=== PATIENT | male | born 1935 | race Caucasian/White ===

== ENCOUNTER 2020-04-25 06:41 | Inpatient (IN) | payer MEDICARE, OTHER ==
[~2020-04-25] VITALS: Ht 175.3 cm; Wt 112.6 kg
[~2020-04-25 06:41] MED LIST: ATOR40TA52 PO; CELE1CAP PO; FURO1TAB33 PO; PANT40TA2 PO; SUCR1TAB22 PO
[2020-04-25] MEDS ORDERED: SUCCINYLCHOLINE CHLORIDE 20 MG/ML 10ML VIAL IV ONE (06:51)
[2020-04-25] MEDS ORDERED: LIDOCAINE 1% HCL (LOCAL ANESTH.) INJ 20ML MDV ONE (06:51)
[2020-04-25] MEDS ORDERED: TETRACAINE 1% INJ 2 ML VIAL IJ ONE (06:52)
[2020-04-25] MEDS ORDERED: MIDAZOLAM HCL 1MG/1ML-2 ML VIAL ONE (07:02)
[2020-04-25] MEDS ORDERED: SODIUM CHLORIDE LOCK 10 ML ONE (07:02)
[2020-04-25] MEDS ORDERED: PROPOFOL 10 MG/ML 20 ML IV ONE (07:02)
[2020-04-25] MEDS ORDERED: MORPHINE SULF(PF) 0.5MG/ML 10ML VIAL ONE ×2 (07:02→07:14)
[2020-04-25] MEDS ORDERED: EPINEPHrine HCL 1 MG/1 ML AMP ONE (07:02)
[2020-04-25] MEDS ORDERED: ONDANSETRON HCL 4 MG/2 ML VIAL ONE (07:02)
[2020-04-25] MEDS ORDERED: BUPIVACAINE W/ EPINEPH 0.25% INJ 50ML MDV ONE (07:02)
[2020-04-25] MEDS ORDERED: fentaNYL CITRATE 100 MCG/2 ML VL ONE (07:02)
[2020-04-25] MEDS ORDERED: BUPIVACAINE/DEXTROSE MPF 0.75% 2 ML AMP IT ONE (07:03)
[2020-04-25] MEDS ORDERED: ceFAZolin 1GM/50ML 100 ML IV ONE (07:05)
[2020-04-25] MEDS ORDERED: CELECOXIB 100 MG CAP ONE (07:05)
[2020-04-25] MEDS ORDERED: ACETAMINOPHEN IV 100 ML IV ONE (07:06)
[2020-04-25] MEDS ORDERED: TRANEXAMIC ACID 20 ML ONE (07:07)
[2020-04-25] MEDS ORDERED: VANCOMYCIN HCL 1000 MG VL ONE ×2 (07:09→08:31)
[2020-04-25] MEDS ORDERED: KETOROLAC TROMETH 30 MG/ML 1ML VIAL ONE (07:14)
[2020-04-25] MEDS ORDERED: PREGABALIN 25 MG CAP PO ONE (07:15)
[2020-04-25] MEDS ORDERED: ceFAZolin 1GM VL ONE (08:28)
[2020-04-25] MEDS ORDERED: NALOXONE HCL 0.4 MG/ML VIAL IV PRN (08:45)
[2020-04-25] MEDS ORDERED: MORPHINE SULFATE 4 MG/ML SYR/VIAL IV PRN (08:45)
[2020-04-25] MEDS ORDERED: diphenhdrAMINE HCL 50 MG/1 ML VL IV PRN (08:45)
[2020-04-25] MEDS ORDERED: fentaNYL CITRATE 100 MCG/2 ML VL IV PRN (08:45)
[2020-04-25] MEDS ORDERED: ONDANSETRON HCL 4 MG/2 ML VIAL IV PRN ×2 (08:45→10:15)
[2020-04-25] MEDS ORDERED: HYDROmorphone HCL 2 MG/ML VL IV PRN ×2 (08:45→10:15)
[2020-04-25] MEDS ORDERED: HYDROcodone-ACET 5/325MG TAB PO PRN (10:15)
[2020-04-25] MEDS ORDERED: traMADol HCL 50 MG TAB PO PRN (10:15)
[2020-04-25] MEDS ORDERED: MORPHINE SULF INJ 2 MG/ML SYRINGE 1ML IV PRN (10:15)
[2020-04-25] MEDS ORDERED: KETOROLAC TROMETH 30 MG/ML 1ML VIAL IV PRN (10:15)
[2020-04-25] MEDS ORDERED: BISACODYL 5 MG EC TAB PO PRN (10:15)
[2020-04-25] MEDS ORDERED: NITROGLYCERIN 0.4 MG SL TAB SL PRN (10:15)
[2020-04-25] MEDS ORDERED: PANTOPRAZOLE 40 MG TAB PO ONE (10:30)
[2020-04-25] MEDS ORDERED: DOCUSATE SOD 100 MG CAP PO ONE (10:30)
[2020-04-25] MEDS: FUROSEMIDE 20 MG TAB PO ONE ×2 (10:30→20:31)
[2020-04-25] MEDS ORDERED: ENOXAPARIN SOD 40 MG/0.4 ML SYRINGE SC ONE (10:30)
[2020-04-25] MEDS ORDERED: SUCRALFATE 1 GM TAB PO ONE (10:30)
[2020-04-25] MEDS ORDERED: ceFAZolin 1GM/50ML 50 ML IV SCH (11:00)
[2020-04-25] MEDS ORDERED: ceFAZolin 1GM 2 GM in D5W 5% 100 ML IV SCH (14:00)
[2020-04-25] MEDS: SODIUM CHLOR 0.9% PF (SALINE LOCK) 10ML VIAL/SYR IV SCH ×2 (14:00→22:14)
--- NOTE | 2020-04-25 18:26 | NUR ---
PATIENT ARRIVED FROM RECOVERY ROOM VIA HOSPITAL BED, TO ROOM 288B, WITH ROSALIE RN, PT IS ALERT ORIENTED X4, NO DISTRESS NOTED, ELROY WRAP NOTED ON PATIENT'S RT KNEE AND RT LOWER LEG, A SMALL WOUND VACUUM NOTED CONNECTED TO PATIENT'S INCISIONS, NO OUTPUT NOTED, CRENSHAW CATHETER TO GRAVITY, URINE IS YELLOW AND CLEAR, PAIN 0/10 AT THIS TIME, FALL RISK PRECAUTIONS, BED ALARM ACTIVATED, ROOM ORIENTATION GIVEN TO PT, CALL LIGHT WITHIN REACH
[2020-04-25 18:30] VITALS: BP 122/76
--- NOTE | 2020-04-25 18:30 | NUR ---
CPM PER MARQUTIA HONG, WE STILL WAITING FOR CPM ARRIVAL
--- NOTE | 2020-04-25 18:40 | NUR ---
DINNER TRY DELIVERED TO PATIENT BY OR TECH
--- NOTE | 2020-04-25 19:06 | NUR ---
PT CONTINUE STABLE, CONTINUE MONITORING
--- NOTE | 2020-04-25 19:18 | NUR ---
REPORT GIVEN TO JESÚS HONG, WILL TAKE CARE OF PATIENT'S MEDICATIONS
[2020-04-25] MEDS: SUCRALFATE 1 GM TAB PO SCH (19:46)
[2020-04-25] MEDS: LACTATED RINGER'S 1,000 ML IV SCH ×2 (19:47→20:11)
--- NOTE | 2020-04-25 20:00 | NUR ---
Opening Shift Note Assumed care of patient, awake and alert. No S/S of distress/SOB or pain. Instructed on POC and to call for assist PRN, will continue to monitor for changes Q1hr and PRN.Dressing in the right knee dry and intact.
[2020-04-25] MEDS: DOCUSATE SOD 100 MG CAP PO SCH (21:10)
[2020-04-25] MEDS: ceFAZolin 1GM/50ML 50 ML IV SCH (21:10)
[2020-04-25] MEDS: ATORVASTATIN 20 MG TAB PO SCH (21:11)
[2020-04-25 22:00] VITALS: BP 104/66
[2020-04-26 05:00] VITALS: BP 111/71
[2020-04-26] MEDS: SODIUM CHLOR 0.9% PF (SALINE LOCK) 10ML VIAL/SYR IV SCH ×3 (05:29→21:55)
[2020-04-26] MEDS: ceFAZolin 1GM/50ML 50 ML IV SCH ×2 (05:29→14:19)
[2020-04-26 06:19] LABS: Hematocrit 37.7 % (41.0-53.0); Hemoglobin 12.5 g/dL (13.5-17.5)
--- NOTE | 2020-04-26 06:25 | NUR ---
Marques catheter dc'd Order to discontinue Marques catheter. Marques dc'd with clean technique following deflation of balloon. Patient tolerated well with no complaints of pain. Continue care.
[2020-04-26 06:40] LABS: Potassium 4.2 mmol/L (3.5-5.1)
[2020-04-26 06:47] LABS: Albumin 2.9 g/dL (3.4-5.0); BUN/Creatinine Ratio 18.1; Calcium 7.7 mg/dL (8.5-10.1); Total Protein 6.6 g/dL (6.4-8.2)
--- NOTE | 2020-04-26 07:00 | NUR ---
Opening Shift Note Received report on the patient. Awake lying in bed. Patient shows no signs of distress at this time. Discussed the plan of care with the patient. Bed in lowest position, side rails up x2, and call light is within reach.
--- NOTE | 2020-04-26 07:20 | NUR ---
Care report given to Sheeba Alvarez, patient is resting no distress.
[2020-04-26 09:00] VITALS: BP 104/61
[2020-04-26] MEDS: SUCRALFATE 1 GM TAB PO SCH ×2 (09:37→17:55)
[2020-04-26] MEDS: DOCUSATE SOD 100 MG CAP PO SCH ×2 (09:37→21:55)
[2020-04-26] MEDS: FUROSEMIDE 20 MG TAB PO SCH (09:37)
[2020-04-26] MEDS: PANTOPRAZOLE 40 MG TAB PO SCH (09:38)
[2020-04-26] MEDS: ENOXAPARIN SOD 40 MG/0.4 ML SYRINGE SC SCH ×2 (09:38→09:44)
[2020-04-26 12:45] VITALS: BP 99/62
--- NOTE | 2020-04-26 13:28 | NUR ---
Mac from Dr Kurtz's office called and said that the CMP machine will go with the patient if he is discharged home. If the patient is discharged to a snf, CMP will not go. Tessie may discharge patient today or tomorrow. Mac also stated that home health has been set up with [facility] and they should be calling the patient with all the information.
--- NOTE | 2020-04-26 14:44 | NUR ---
Dr Cary at bedside. New orders received.
[2020-04-26] MEDS ORDERED: THROAT LOZENGES(CEPASTAT) MT PRN (14:45)
[2020-04-26] MEDS ORDERED: HYDROmorphone HCL 2 MG/ML VL IV PRN (14:45)
[2020-04-26 16:56] VITALS: BP 112/67
--- NOTE | 2020-04-26 19:33 | NUR ---
Endorsed care to GELY Ng. Patient shows no signs of distress at this time.
[2020-04-26] MEDS: ATORVASTATIN 20 MG TAB PO SCH (21:55)
[2020-04-26 22:00] VITALS: BP 109/73
[2020-04-27 05:00] VITALS: BP 115/69
[2020-04-27 05:09] LABS: Hematocrit 32.7 % (41.0-53.0)
[2020-04-27 05:28] LABS: BUN/Creatinine Ratio 15.6; Calcium 7.9 mg/dL (8.5-10.1); Potassium 3.9 mmol/L (3.5-5.1)
[2020-04-27] MEDS: SODIUM CHLOR 0.9% PF (SALINE LOCK) 10ML VIAL/SYR IV SCH ×2 (05:38→14:04)
[2020-04-27 09:00] VITALS: BP 131/64
[2020-04-27] MEDS: DOCUSATE SOD 100 MG CAP PO SCH (09:25)
[2020-04-27] MEDS: SUCRALFATE 1 GM TAB PO SCH (09:25)
[2020-04-27] MEDS: PANTOPRAZOLE 40 MG TAB PO SCH (09:26)
[2020-04-27] MEDS: ENOXAPARIN SOD 40 MG/0.4 ML SYRINGE SC SCH (09:26)
[2020-04-27] MEDS: FUROSEMIDE 20 MG TAB PO SCH (09:26)
[2020-04-27 12:13] VITALS: BP 131/64
[2020-04-27 13:00] VITALS: BP 120/63
--- NOTE | 2020-04-27 15:01 | NUR ---
Assessment Patient is an 84-year-old male who is alert and oriented. Prior to admission patient lived home with family and function with assistance. Per patient he has a shower chair, walker and wheelchair. Per patient he will return to his prior living arrangements post discharge and family will transport her home. Advise patient there is a social service consult for home health. Information and choice letter was given to patient. Per patient he would like [facility] that doctor recommended. Informed patient clinical information will be faxed to agency. Informed patient he has the right to participate in all discharge planning. Patient verbalized understanding and agreed to discharge plan. Faxed clinical information to [facility]. Per Patricia with [facility] patient has been accepted and service to start within 24-48hrs upon d/c day. Informed GELY Alvarez. Addendum: 04/27/20 at 1502 by RUTH GUNN Amended: Links added.
== END 2020-04-27 17:30 | disposition home health service (06) | DRG 470 ==
LOC: OVERFLOW 06:41 → EDSTATUS 08:00 → TELE-WESTW 18:26
PROVIDERS: ADMIT Orthopaedic Surgery; ATTEND Internal Medicine
PROC: 0SRC0J9 Replacement of Right Knee Joint with Synthetic Substitute, Cemented, Open Approach (ICD-10-PCS; principal; 2020-04-25 07:50)
DX: M17.11 Unilateral primary osteoarthritis, right knee (principal); I50.42 Chronic combined systolic (congestive) and diastolic (congestive) heart failure; J44.9 Chronic obstructive pulmonary disease, unspecified; E78.5 Hyperlipidemia, unspecified; E66.9 Obesity, unspecified; Z87.891 Personal history of nicotine dependence; Z79.01 Long term (current) use of anticoagulants; Z11.59 Encounter for screening for other viral diseases
CPT/HCPCS: 36415; 73562; 80048; 80053; 85014; 85018; 97116; 97530; C1776; G0378; J0131; J0171; J0330; J0690; J1885; J2001; J2250; J2405; J2704; J7060